=== PATIENT | female | born 1935 | race Caucasian/White ===

== ENCOUNTER 2017-02-16 08:51 | Emergency (ER) | payer OTHER ==
[~2017-02-16] VITALS: Ht 157.5 cm; Wt 66.7 kg
[~2017-02-16 08:51] MED LIST: ADVIL200 M3 PO; AUGMENTIN875 MG PO; BENICAR20 MG PO; COZAAR100 MG PO; CYANOCOBALAM1000 MCG PO; FLEXERIL5 M1 PO; FOSAMAX70 M1 PO; FUROSEMIDE40 MG PO; GLIMEPIRIDE1 MG PO; GLIPIZIDE10 M1 PO; GLUCOPHAGE1000 MG PO; JANUVIA100 MG PO; LIDODERM 5% P1 PATCH PO; LIPITOR20 MG PO; LOPROX 0.77% CR30 GM PO; MAGNESIUM250 MG PO; MICRO-K10 MEQ PO; MIRALAX17 GM PO; MOTRIN600 MG PO; NEXIUM40 MG PO; SYNTHROID88 MCG PO; TYLENOL WITH C1 EACH PO; TYLENOL325 M1 PO; VERAPAMIL ER180 M1 PO; VITAMIN D1000 UNIT PO; [UNRECOGNIZED DRUG - SUPPLY] IN
[2017-02-16 09:32] LABS: HEMATOCRIT 34.1 % (36.0-46.0); MCH 27.3 PG (29.0-34.0); MCHC 31.7 G/DL (30.0-36.0); MCV 86.1 FL (83-99); MEAN PLAT.VOLUME 9.3 uM^3 (9.5-12.4); PLATELET COUNT 421 K/uL (156-360); RBC DIS.WIDTH-CV 15.2 % (11.8-14.6); RBC DIS.WIDTH-SD 48.2 % (39-53); RED BLOOD COUNT 3.96 M/uL (3.80-5.20); WHITE BLOOD COUNT 9.4 K/uL (4.1-10.2)
[2017-02-16 09:43] LABS: CHLORIDE 103 mEq/L (99-109); POTASSIUM 4.1 mEq/L (3.7-5.4); SODIUM 139 mEq/L (136-147)
[2017-02-16 09:45] LABS: GLUCOSE 191 mg/dL (70-99)
[2017-02-16 09:46] LABS: ANION GAP 11 MEQ/L (2-14)
[2017-02-16 09:49] LABS: GFR ESTIMATE (CALCULATED) > 59 mL/min/
[2017-02-16 09:50] LABS: UREA NITROGEN (BUN) 18 mg/dL (9-23)
[2017-02-16 09:53] LABS: TROP-I INTERPRETATION NEGATIVE; TROPONIN-I < 0.01 ng/mL (0.0-0.30)
[2017-02-16] MEDS ORDERED: NORCO 5/3251 TABLET PO (11:24)
[2017-02-16] MEDS ORDERED: PREDNISONE20 MG PO (11:24)
[2017-02-16 11:49] VITALS: BP 171/66
== END 2017-02-16 12:15 | disposition home or self-care (01) ==
LOC: EME → EDBD 08:51 → EME 08:51
DX: R50.9 Fever, unspecified (principal); M54.5 Low back pain
CPT/HCPCS: 72100; 80048; 84484; 85027; 93005; 99281; 99285; J1885; J2270; J3360; J7040; J7512

== ENCOUNTER 2017-02-20 02:55 | Emergency (ER) | payer OTHER ==
[~2017-02-20] VITALS: Ht 157.5 cm; Wt 73.6 kg
[~2017-02-20 02:55] MED LIST changes: +NORCO 5/3251 TABLET PO; +PREDNISONE20 MG PO
[2017-02-20 04:16] LABS: ADD MIUA? NO; BILIRUBIN NEGATIVE; BLOOD NEGATIVE; COLOR STRAW ((YELLOW)); GLUCOSE (STRIP) NEGATIVE; KETONES NEGATIVE; LEUKOCYTES NEGATIVE; NITRITE NEGATIVE; PROTEIN (STRIP) NEGATIVE; SPECIFIC GRAVITY 1.005 (1.000-1.030); UCUL ADDED? NO; UROBILINOGEN 0.2 MG/DL (0.2-1.0)
[2017-02-20 05:25] VITALS: BP 154/78
== END 2017-02-20 05:26 | disposition home or self-care (01) ==
LOC: EME → EDBD 02:55 → EME 05:26
PROVIDERS: Emergency Medicine
DX: M54.16 Radiculopathy, lumbar region (principal); M54.5 Low back pain; E11.9 Type 2 diabetes mellitus without complications; E78.5 Hyperlipidemia, unspecified; I10 Essential (primary) hypertension; Z88.6 Allergy status to analgesic agent; Z88.2 Allergy status to sulfonamides
CPT/HCPCS: 81003; 99281; 99284; J3010

== ENCOUNTER 2017-07-20 19:06 | Emergency (ER) | payer OTHER ==
[~2017-07-20] VITALS: Ht 157.5 cm; Wt 72.8 kg
[2017-07-20 19:54] LABS: HEMATOCRIT 33.8 % (36.0-46.0); MCH 27.3 PG (29.0-34.0); MCHC 32.2 G/DL (30.0-36.0); MCV 84.7 FL (83-99); PLATELET COUNT 441 K/uL (156-360); RBC DIS.WIDTH-CV 14.6 % (11.8-14.6); RBC DIS.WIDTH-SD 44.8 % (39-53); RED BLOOD COUNT 3.99 M/uL (3.80-5.20); WHITE BLOOD COUNT 21.3 K/uL (4.1-10.2)
[2017-07-20 19:58] LABS: POINT-OF-CARE METER ID UU13113747
[2017-07-20 20:03] LABS: POTASSIUM 4.3 mEq/L (3.7-5.4); SODIUM 139 mEq/L (136-147)
[2017-07-20 20:05] LABS: GLUCOSE 135 mg/dL (70-99)
[2017-07-20 20:06] LABS: ANION GAP 12 MEQ/L (2-14)
[2017-07-20 20:08] LABS: GFR ESTIMATE (CALCULATED) > 59 mL/min/
[2017-07-20 20:09] LABS: UREA NITROGEN (BUN) 17 mg/dL (9-23)
[2017-07-20 20:17] LABS: CHLORIDE 104 mEq/L (99-109)
[2017-07-20 21:57] LABS: ADD MIUA? YES; BILIRUBIN NEGATIVE; BLOOD LARGE; GLUCOSE (STRIP) 50; KETONES NEGATIVE; LEUKOCYTES MODERATE; NITRITE NEGATIVE; PROTEIN (STRIP) 100; SPECIFIC GRAVITY 1.012 (1.000-1.030); UROBILINOGEN 0.2 MG/DL (0.2-1.0)
[2017-07-20 22:00] LABS: COLOR RED ((YELLOW))
[2017-07-20 22:02] LABS: RED BLOOD CELLS TNTC /HPF (0-5); UCUL ADDED? YES
[2017-07-20] MEDS ORDERED: KEFLEX500 MG PO (22:02)
[2017-07-20 22:49] VITALS: BP 148/67
== END 2017-07-20 22:51 | disposition home or self-care (01) ==
LOC: EME 19:06
PROVIDERS: Emergency Medicine
DX: N30.90 Cystitis, unspecified without hematuria (principal); E86.0 Dehydration; E11.9 Type 2 diabetes mellitus without complications; E78.5 Hyperlipidemia, unspecified; I10 Essential (primary) hypertension; K21.9 Gastro-esophageal reflux disease without esophagitis; Z79.84 Long term (current) use of oral hypoglycemic drugs; Z88.8 Allergy status to other drugs, medicaments and biological substances
CPT/HCPCS: 80048; 81003; 82948; 83605; 85027; 99281; 99285; J0696; J7030; J7050

== ENCOUNTER 2017-10-30 03:10 | Inpatient (IN) | payer OTHER ==
[~2017-10-30] VITALS: Ht 157.5 cm; Wt 97.7 kg
[~2017-10-30 03:10] MED LIST changes: +CYANOCOBAL1000 MCG/2 IM; -CYANOCOBALAM1000 MCG PO; +KEFLEX500 MG PO; +LIPITOR10 MG PO; -LIPITOR20 MG PO; +MICRO-K10 ME2 PO; -MICRO-K10 MEQ PO; +NEXIUM20 MG PO; -NEXIUM40 MG PO; -VERAPAMIL ER180 M1 PO; +VERAPAMIL HCL180 MG PO; -VITAMIN D1000 UNIT PO; +VITAMIN D31000 UNI2 PO
[2017-10-30 03:47] LABS: HEMATOCRIT 29.6 % (36.0-46.0); HEMOGLOBIN 9.5 G/DL (11.9-15.5); MCH 26.2 PG (29.0-34.0); MCHC 32.1 G/DL (30.0-36.0); MCV 81.5 FL (83-99); PLATELET COUNT 390 K/uL (156-360); RBC DIS.WIDTH-SD 44.2 % (39-53); RED BLOOD COUNT 3.63 M/uL (3.80-5.20); WHITE BLOOD COUNT 9.6 K/uL (4.1-10.2)
[2017-10-30 03:58] LABS: ALBUMIN 4.1 g/dL (3.2-4.8); CHLORIDE 96 mEq/L (99-109); POTASSIUM 3.9 mEq/L (3.7-5.4); SODIUM 131 mEq/L (136-147)
[2017-10-30 04:01] LABS: GLUCOSE 193 mg/dL (70-99); TOTAL PROTEIN 6.5 g/dL (6.4-8.3)
[2017-10-30 04:02] LABS: TOTAL BILIRUBIN 0.3 mg/dL (0.0-1.0)
[2017-10-30 04:04] LABS: ALKALINE PHOSPHATASE 81 IU/L (3-129); GFR ESTIMATE (CALCULATED) 56 mL/min/
[2017-10-30 04:05] LABS: UREA NITROGEN (BUN) 23 mg/dL (9-23)
[2017-10-30 04:06] LABS: AST (GOT) 15 IU/L (2-34); DIRECT BILIRUBIN 0.2 mg/dL (0.0-0.3)
[2017-10-30 04:07] LABS: ALT (GPT) 18 IU/L (3-49)
[2017-10-30 04:08] LABS: LIPASE 212 U/L (1.0-51.0)
[2017-10-30 04:12] LABS: TROP-I INTERPRETATION NEGATIVE; TROPONIN-I < 0.01 ng/mL (0.0-0.30)
[2017-10-30 06:10] LABS: APPEARANCE CLEAR ((CLEAR)); BILIRUBIN NEGATIVE; BLOOD NEGATIVE; COLOR YELLOW ((YELLOW)); GLUCOSE (STRIP) NEGATIVE; KETONES NEGATIVE; LEUKOCYTES NEGATIVE; NITRITE NEGATIVE; PROTEIN (STRIP) NEGATIVE; SPECIFIC GRAVITY 1.004 (1.000-1.030); UROBILINOGEN 0.2 MG/DL (0.2-1.0)
[2017-10-30 07:15] VITALS: BP 170/74
[2017-10-30] MEDS ORDERED: MACRODANTIN100 MG PO (08:08)
[2017-10-30] MEDS ORDERED: TYLENOL EXTRA500 MG PO (08:57)
[2017-10-30] MEDS ORDERED: COLACE100 MG PO (08:58)
[2017-10-30] MEDS ORDERED: VITAMIN D31000 UNI2 PO ×2 (11:10)
[2017-10-30] MEDS ORDERED: IBUPROFEN800 MG PO (11:12)
[2017-10-30] MEDS ORDERED: GLIMEPIRIDE1 MG PO (11:12)
[2017-10-30] MEDS ORDERED: LEVOTHYROXINE88 MCG PO (11:14)
[2017-10-30 12:47] VITALS: BP 152/78
[2017-10-30 17:18] VITALS: BP 170/72
[2017-10-30 19:47] VITALS: BP 155/70
[2017-10-31 00:15] VITALS: BP 161/67
[2017-10-31 03:10] VITALS: BP 163/70
[2017-10-31 06:41] LABS: BASOPHIL (%) 0.7 % (0-1); BASOPHIL COUNT 0.1 K/uL (0-0.1); EOSINOPHIL (%) 3.3 % (0-5); EOSINOPHIL COUNT 0.3 K/uL (0-0.3); HEMATOCRIT 29.9 % (36.0-46.0); HEMOGLOBIN 9.2 G/DL (11.9-15.5); IMMATURE GRANULOCYTE (%) 0.6 % (0.0-0.7); LYMPHOCYTE (%) 29.1 % (15-42); LYMPHOCYTE COUNT 2.8 K/uL (1.0-2.8); MCH 25.7 PG (29.0-34.0); MCHC 30.8 G/DL (30.0-36.0); MCV 83.5 FL (83-99); MONOCYTE (%) 8.6 % (3-12); MONOCYTE COUNT 0.8 K/uL (0-0.8); NEUTROPHIL (%) 57.7 % (45-76); NEUTROPHIL COUNT 5.4 K/uL (1.8-6.4); PLATELET COUNT 394 K/uL (156-360); RBC DIS.WIDTH-CV 15.3 % (11.8-14.6); RBC DIS.WIDTH-SD 46.7 % (39-53); RED BLOOD COUNT 3.58 M/uL (3.80-5.20); WHITE BLOOD COUNT 9.4 K/uL (4.1-10.2)
[2017-10-31 07:25] LABS: ALBUMIN 3.6 G/DL (3.2-4.8); ALKALINE PHOSPHATASE 57 IU/L (3-129); ALT (GPT) 14 IU/L (3-49); AMYLASE 47 IU/L (1-118); AST (GOT) 16 IU/L (2-34); CHLORIDE 107 MEQ/L (99-109); CREATININE 0.7 MG/DL (0.6-1.3); GFR ESTIMATE (CALCULATED) > 59 mL/min/; GLUCOSE 160 mg/dL (70-99); LIPASE 66 U/L (1.0-51.0); POTASSIUM 4.1 MEQ/L (3.7-5.4); TOTAL BILIRUBIN 0.4 MG/DL (0.0-1.0); TOTAL PROTEIN 5.5 G/DL (6.4-8.3); UREA NITROGEN (BUN) 13 mg/dL (9-23)
[2017-10-31 07:26] LABS: SODIUM 140 MEQ/L (136-147)
[2017-10-31 08:50] VITALS: BP 170/74
[2017-10-31 11:54] VITALS: BP 180/73
[2017-10-31 16:23] VITALS: BP 196/94
[2017-11-01 00:15] VITALS: BP 149/66
[2017-11-01 06:21] LABS: BASOPHIL (%) 0.8 % (0-1); BASOPHIL COUNT 0.1 K/uL (0-0.1); EOSINOPHIL (%) 4.2 % (0-5); EOSINOPHIL COUNT 0.4 K/uL (0-0.3); HEMOGLOBIN 9.7 G/DL (11.9-15.5); IMMATURE GRANULOCYTE (%) 0.7 % (0.0-0.7); LYMPHOCYTE (%) 25.1 % (15-42); LYMPHOCYTE COUNT 2.3 K/uL (1.0-2.8); MCH 26.3 PG (29.0-34.0); MCHC 31.3 G/DL (30.0-36.0); MONOCYTE (%) 9.9 % (3-12); MONOCYTE COUNT 0.9 K/uL (0-0.8); NEUTROPHIL (%) 59.3 % (45-76); NEUTROPHIL COUNT 5.5 K/uL (1.8-6.4); PLATELET COUNT 376 K/uL (156-360); RBC DIS.WIDTH-CV 15.4 % (11.8-14.6); RBC DIS.WIDTH-SD 47.6 % (39-53); RED BLOOD COUNT 3.69 M/uL (3.80-5.20); WHITE BLOOD COUNT 9.2 K/uL (4.1-10.2)
[2017-11-01 06:50] LABS: ALBUMIN 3.5 G/DL (3.2-4.8); ALKALINE PHOSPHATASE 61 IU/L (3-129); ALT (GPT) 14 IU/L (3-49); AST (GOT) 14 IU/L (2-34); CHLORIDE 106 MEQ/L (99-109); CREATININE 0.9 MG/DL (0.6-1.3); GFR ESTIMATE (CALCULATED) > 59 mL/min/; GLUCOSE 184 mg/dL (70-99); LIPASE 57 U/L (1.0-51.0); POTASSIUM 4.1 MEQ/L (3.7-5.4); SODIUM 136 MEQ/L (136-147); TOTAL BILIRUBIN 0.4 MG/DL (0.0-1.0); TOTAL PROTEIN 5.8 G/DL (6.4-8.3); UREA NITROGEN (BUN) 14 mg/dL (9-23)
[2017-11-01 08:28] VITALS: BP 164/60
[2017-11-01 10:59] VITALS: BP 108/59
== END 2017-11-01 18:08 | disposition home or self-care (01) | DRG 439 ==
LOC: EME → EDBD 03:10 → EME 03:10 → EDOF 04:20 → 2EAST 04:20 → ENRESERV 04:58 → 2EAST 07:14
PROVIDERS: Emergency Medicine; Internal Medicine
DX: K85.90 Acute pancreatitis without necrosis or infection, unspecified (principal); D49.0 Neoplasm of unspecified behavior of digestive system; I10 Essential (primary) hypertension; E78.5 Hyperlipidemia, unspecified; N76.0 Acute vaginitis; E11.9 Type 2 diabetes mellitus without complications; K86.2 Cyst of pancreas; E03.9 Hypothyroidism, unspecified; D64.9 Anemia, unspecified; E87.1 Hypo-osmolality and hyponatremia; M19.90 Unspecified osteoarthritis, unspecified site; M51.9 Unspecified thoracic, thoracolumbar and lumbosacral intervertebral disc disorder; E55.9 Vitamin D deficiency, unspecified; E53.8 Deficiency of other specified B group vitamins; K21.9 Gastro-esophageal reflux disease without esophagitis
CPT/HCPCS: 71045; 74183; 76705; 80048; 80053; 80076; 81003; 82150; 82948; 83690; 83880; 84484; 85025; 85027; 87040; 87086; 93005; C9113; J0696; J7030